=== PATIENT | male | born 1965 | race Caucasian/White ===

== ENCOUNTER 2019-04-07 08:27 | Day surgery (SDC) | payer BC, OTHER ==
[2019-04-07] MEDS ORDERED: LIDOCAINE HCL 2% (20ML MULTI-DOSE VIAL) ONE (09:25)
[2019-04-07 09:51] VITALS: BMI 27.8
[2019-04-07 09:51] LABS: ALBUMIN 3.1 g/dl (3.4-5.0); BILIRUBIN,TOTAL 0.6 mg/dL (0.2-1); BLOOD UREA NITROGEN 9.4 mg/dL (7-18); CALCIUM 9.3 mg/dL (8.5-10.1); CREATININE 0.7 mg/dL (0.55-1.3); TOT PROT 6.9 g/dl (6.4-8.2)
[2019-04-07] MEDS ORDERED: PROPOFOL 20 ML ONE ×2 (10:41→11:01)
[2019-04-07] MEDS ORDERED: MIDAZOLAM HCL 2 MG/2 ML SINGLE DOSE VIAL ONE (10:42)
[2019-04-07] MEDS ORDERED: ceFAZolin SODIUM 1 GM VIAL ONE (11:00)
[2019-04-07] MEDS ORDERED: ceFAZolin SODIUM 1 GM VIAL IVPB ONE (11:01)
[2019-04-07] MEDS ORDERED: DEXAMETHASONE SOD PHOSPHATE 4 MG/1 ML VIAL ONE (11:21)
[2019-04-07] MEDS ORDERED: LIDOCAINE HCL/PF 2% SDV 5ML VIAL ONE (11:35)
[2019-04-07] MEDS ORDERED: LIDOCAINE HCL 2% (50ML VIAL) NR ONE (11:37)
[2019-04-07] MEDS ORDERED: ePHEDrine SULFATE 50 MG/1 ML AMPULE ONE (11:55)
[2019-04-07] MEDS ORDERED: oxyCODONE HCL 5 MG TABLET PO PRN (12:23)
[2019-04-07] MEDS ORDERED: ONDANSETRON 4 MG/2 ML VIAL IVPUSH PRN (12:23)
--- NOTE | 2019-04-07 12:24 | OP ---
Operative Note - Note: Operative Date: 04/07/19 Pre-Operative Diagnosis: BPH. Phimosis Operation: Bipolar TURP. Circumcision Findings: BPH Phimosis Post-Operative Diagnosis: Same as Pre-op Surgeon: Javed Stroud MD. Anesthesia: General Estimated Blood Loss (mls): 10 Drains & Tubes with Location: 20 fr sanders Operative Report Dictated: Yes
[2019-04-07] MEDS ORDERED: LACTATED RINGERS SOLUTION 1,000 ML IV SCH (12:30)
--- NOTE | 2019-04-07 13:41 | OP ---
DATE OF OPERATION: 04/07/2019 PREOPERATIVE DIAGNOSIS: Phimosis and benign prostatic hypertrophy. POSTOPERATIVE DIAGNOSIS: Phimosis and benign prostatic hypertrophy. PROCEDURE: Bipolar transurethral resection of the prostate and circumcision. HISTORY: This is 54-year-old gentleman with a long history of severe phimosis, unable to retract foreskin with irritation and unable to have sexual intercourse. It was recommended that the patient have a circumcision. Patient accepts the risks and benefits of procedure. Patient also has obstructive and irritative voiding symptoms for which he was evaluated. He was determined to have a component of BPH as well as some bladder overactivity. The patient elected to undergo the bipolar TURP for his voiding symptoms knowing that his irritation symptoms may not appreciate much. All questions were answered. It was noted that the patient is [place] and is refusing blood transfusion. BRIEF OPERATIVE NOTE: Patient brought to the operating room. Placed in supine position. Once general anesthesia was administered, patient was transferred to dorsal lithotomy position, prepped and draped in the standard sterile fashion. Intravenous antibiotics were given. At this time, a 26-Hungarian scope sheath was placed into bladder under direct vision. There was no ureteral stricture. The urethra did have to be dilated to 20-Hungarian to accommodate a 26 scope. The bladder was inspected. It was 2+ trabeculation. Of note, was a diffuse [id number] erythema. A urine cytology was, therefore, sent. At this time, attention was turned to the prostate. The prostate was approximately 3 cm in length and occlusive. The lateral lobes were resected using bipolar from the lateral bladder neck to 1 cm proximal to the verumontanum. Specimen was given off as prostate chips. At this time, a small amount of bleeding was noted by the apex and was fulgurated. Due to the patient's history of not wanting a blood transfusion, the tissue was resected and cauterized up almost to the level of the verumontanum. There was no evidence of active bleeding with the bladder decompressed. A 20-Hungarian Dotson catheter was then placed to straight drainage and draining blood-tinged urine. At this time, attention was turned towards the penis. Patient was reprepped and draped, 2% lidocaine was used approximately 10 mL was used as a local block. The skin was opened using Metzenbaum scissors to approximately the level 2 cm proximal to the cummins on the dorsal surface. Incision was then carried around to the ventral surface angling upward toward the frenulum. The phimotic tissue was then removed, given off as foreskin. Electrocautery was used to maintain hemostasis. The skin was then brought together using interrupted 3-0 Vicryls without difficulty. Patient tolerated the procedure well. Was brought to recovery room in stable, satisfactory condition. Kun COLES/[id number]
[2019-04-07] MEDS ORDERED: oxyCODONE HCL 5 MG TABLET ONE (15:40)
[2019-04-07 17:07] VITALS: BP 134/83; PULSE 98; TEMP 97.9
--- NOTE | 2019-04-09 12:47 | PATH ---
Surgical Pathology Report Patient Name: RATURO KIRK [facility]. Rec. #: [id number] /Age/Gender: 1965 (Age: 54) / M Account: [id number] Location: [facility] SURGICAL Taken: 04/07/2019 Received: 04/07/2019 Reported: 04/09/2019 Physicians: Javed Stroud M.D. Specimen(s) Received A: PROSTATE TISSUE B: FORESKIN Clinical History None given Final Diagnosis A. PROSTATE TISSUE, TRANSURETHRAL RESECTION OF PROSTATE: BENIGN PROSTATIC TISSUE WITH FOCAL ACUTE AND CHRONIC INFLAMMATION, GLANDULAR AND STROMAL HYPERPLASIA. B. FORESKIN, CIRCUMCISION: FORESKIN. Comment: See concurrent cytology ([id number]). Electronically Signed Della Galeas M.D. Gross Description A. Received in formalin labeled "prostate tissue," is a 4 g, 3.8 x 2.8 x 0.4 cm aggregate of multiple canchola, irregular, firm to rubbery portions of tissue, consistent with prostate chips. The specimen is entirely submitted in 2 cassettes. B. Received in formalin labeled "foreskin," is a 5.0 x 3.0 x 0.5 cm canchola-brown, unoriented, wrinkled portion of skin, consistent with foreskin. No discrete epidermal lesions are identified. Rope Cutter sections are submitted in one cassette. 04/08/201904/08/2019
--- NOTE | 2019-04-10 09:23 | PATH ---
Cytology Non-Gynecological Report Patient Name: ARTURO KIRK [facility]. Rec. #: [id number] /Age/Gender: 1965 (Age: 54) / M Account: [id number] Location: [facility] SURGICAL Taken: 04/07/2019 Received: 04/07/2019 Reported: 04/10/2019 Physicians: Javed Stroud M.D. Specimen(s) Received URINE VOIDED Clinical History Benign prostate hyperplasia Final Diagnosis URINE FOR CYTOLOGY: SATISFACTORY FOR EVALUATION. NEGATIVE FOR HIGH GRADE UROTHELIAL CARCINOMA. NUMEROUS NEUTROPHILS, RED BLOOD CELLS, AND UROTHELIAL FRAGMENTS PRESENT. Comment: Urothelial fragments are suggestive of prior instrumentation, lithiasis, or a low grade papillary neoplasm. Suggest clinical correlation. See concurrent pathology report [id number]. Electronically Signed Justyna Perez M.D. Gross Description Approximately 50cc of yellow fluid received fresh. One cytospin prepared.
== END 2019-04-07 17:25 | disposition home or self-care (01) ==
LOC: JASU-SURG 08:27
PROVIDERS: ATTEND Urology
PROC: 0VTTXZZ Resection of Prepuce, External Approach (ICD-10-PCS; principal; 2019-04-07 10:00)
PROC: 0VT08ZZ Resection of Prostate, Via Natural or Artificial Opening Endoscopic (ICD-10-PCS; 2019-04-07 10:00)
DX: N47.1 Phimosis (principal); N40.1 Benign prostatic hyperplasia with lower urinary tract symptoms; N13.8 Other obstructive and reflux uropathy; N32.81 Overactive bladder; E11.9 Type 2 diabetes mellitus without complications
CPT/HCPCS: 36415; 80053; 82962; 88108; 94760

== ENCOUNTER 2021-07-10 04:49 | Day surgery (SDC) | payer BC, OTHER ==
[2021-07-07 09:49] VITALS: BMI 29.1
[2021-07-10] MEDS ORDERED: ONDANSETRON 4 MG/2 ML VIAL IVPUSH PRN (09:22)
[2021-07-10] MEDS ORDERED: LACTATED RINGERS SOLUTION 1,000 ML IV SCH (09:30)
[2021-07-10] MEDS ORDERED: ROPIVACAINE HCL 0.5% 30ML VIAL ONE (10:07)
[2021-07-10] MEDS ORDERED: MIDAZOLAM HCL 2 MG/2 ML SINGLE DOSE VIAL ONE ×3 (10:08)
[2021-07-10] MEDS ORDERED: ceFAZolin SODIUM 1 GM VIAL IVPB ONE (11:10)
[2021-07-10] MEDS ORDERED: BUPIVACAINE HCL/PF 0.5% (5MG/ML) 10 ML VIAL ONE (11:28)
[2021-07-10] MEDS ORDERED: LIDOCAINE HCL 1%, 10 MG/ML (20ML VIAL) ONE (11:28)
[2021-07-10] MEDS ORDERED: PROPOFOL 20 ML ONE ×2 (11:32)
[2021-07-10 15:12] VITALS: BP 125/77; PULSE 99; TEMP 97.7
== END 2021-07-10 15:20 | disposition home or self-care (01) ==
LOC: JASU-SURG 04:49
PROVIDERS: ATTEND Orthopaedic Surgery
PROC: 0RNJ4ZZ Release Right Shoulder Joint, Percutaneous Endoscopic Approach (ICD-10-PCS; principal; 2021-07-10 10:00)
DX: M75.41 Impingement syndrome of right shoulder (principal); E11.9 Type 2 diabetes mellitus without complications
CPT/HCPCS: 82962; 94760